=== PATIENT | male | born 1950 | race Caucasian/White ===

== ENCOUNTER 2023-11-06 08:38 | Observation (INO) ==
--- NOTE | 2023-10-11 13:37 | PAT Medication Instructions ---
Medication Instructions Date of Service October 11, 2023 Home Medications Medication Instructions Recorded blood-glucose meter #1 ea 05/26/22 albuterol sulfate 90 mcg/actuation 1 inh inhalation QID PRN Shortness 04/17/23 aerosol inhaler (ProAir HFA) Of Breath #3 Inhalers fluticasone propionate 50 1 spray intranasal BID #48 grams 06/29/23 mcg/actuation nasal spray,suspension (Flonase Allergy Relief) blood sugar diagnostic (Blood #50 ea 07/04/23 Glucose Test strips) ipratropium 0.5 mg-albuterol 3 mg 3 ml inhalation QID PRN wheezing 07/06/23 (2.5 mg base)/3 mL nebulization #180 mL soln Spacer for Inhaler #1 ea 07/14/23 benazepril 40 mg tablet 40 mg PO QAM #90 tabs 08/14/23 glipizide 10 mg tablet, extended 10 mg PO QAM #90 tabs 08/14/23 release 24 hr meloxicam 7.5 mg tablet 7.5 mg PO BID #180 tabs 08/14/23 metformin 1,000 mg tablet 1,000 mg PO BID #180 tabs 08/14/23 pneumoc 20-vikas conj-dip cr(PF) 0.5 0.5 ml IM ONCE #0.5 mL 08/14/23 mL IM syringe (Prevnar 20 (PF)) simvastatin 20 mg tablet 20 mg PO HS #90 tabs 08/14/23 tamsulosin 0.4 mg capsule (Flomax) 0.4 mg PO HS #90 caps 08/14/23 varicella-zoster glycoE [id number] 0.5 ml IM ONCE #1 ea 08/14/23 adj(PF) 50 mcg/0.5 mL IM susp, kit (Shingrix (PF)) budesonide 160 mcg-glycopyr 9 2 inh inhalation BID #3 Inhalers 09/06/23 mcg-formot 4.8 mcg/actuation HFA inhaler (Breztri Aerosphere) montelukast 10 mg tablet 10 mg PO QPM #90 tabs 09/25/23 (Singulair) aspirin 81 mg tablet,delayed release 81 mg PO QAM ascorbic acid (vitamin C) 1,000 mg tablet 1 g PO BID albuterol sulfate 90 mcg/actuation aerosol inhaler (ProAir HFA) 1 inh inhalation QID PRN fluticasone propionate 50 mcg/actuation nasal spray,suspension (Flonase Allergy Relief) 1 spray intranasal BID ipratropium 0.5 mg-albuterol 3 mg (2.5 mg base)/3 mL nebulization soln 3 ml inhalation QID PRN benazepril 40 mg tablet 40 mg PO QAM glipizide 10 mg tablet, extended release 24 hr 10 mg PO QAM meloxicam 7.5 mg tablet 7.5 mg PO BID metformin 1,000 mg tablet 1,000 mg PO BID simvastatin 20 mg tablet 20 mg PO HS tamsulosin 0.4 mg capsule (Flomax) 0.4 mg PO HS budesonide 160 mcg-glycopyr 9 mcg-formot 4.8 mcg/actuation HFA inhaler (Breztri Aerosphere) 2 inh inhalation BID montelukast 10 mg tablet (Singulair) 10 mg PO QPM amlodipine 10 mg tablet 10 mg PO QAM cholecalciferol (vitamin D3) 50 mcg (2,000 unit) capsule (Vitamin D3) 50 mcg PO QAM finasteride 5 mg tablet 5 mg PO QAM ASK your surgeon for instructions meloxicam 7.5 mg tablet 7.5 mg PO BID ASK your prescriber and surgeon aspirin 81 mg tablet,delayed release 81 mg PO QAM DO NOT take the morning of surgery ascorbic acid (vitamin C) 1,000 mg tablet 1 g PO BID benazepril 40 mg tablet 40 mg PO QAM glipizide 10 mg tablet, extended release 24 hr 10 mg PO QAM metformin 1,000 mg tablet 1,000 mg PO BID cholecalciferol (vitamin D3) 50 mcg (2,000 unit) capsule (Vitamin D3) 50 mcg PO QAM Take morning of surgery With a small sip of water, OTHERWISE NOTHING TO EAT OR DRINK AFTER MIDNIGHT: albuterol sulfate 90 mcg/actuation aerosol inhaler (ProAir HFA) 1 inh inhalation QID PRN(use if needed; please bring with you to hospital day of surgery if possible) fluticasone propionate 50 mcg/actuation nasal spray,suspension (Flonase Allergy Relief) 1 spray intranasal BID ipratropium 0.5 mg-albuterol 3 mg (2.5 mg base)/3 mL nebulization soln 3 ml inhalation QID PRN(if needed) budesonide 160 mcg-glycopyr 9 mcg-formot 4.8 mcg/actuation HFA inhaler (Breztri Aerosphere) 2 inh inhalation BID amlodipine 10 mg tablet 10 mg PO QAM finasteride 5 mg tablet 5 mg PO QAM Take evening before surgery ascorbic acid (vitamin C) 1,000 mg tablet 1 g PO BID albuterol sulfate 90 mcg/actuation aerosol inhaler (ProAir HFA) 1 inh inhalation QID PRN(if needed) fluticasone propionate 50 mcg/actuation nasal spray,suspension (Flonase Allergy Relief) 1 spray intranasal BID ipratropium 0.5 mg-albuterol 3 mg (2.5 mg base)/3 mL nebulization soln 3 ml inhalation QID PRN(if needed) metformin 1,000 mg tablet 1,000 mg PO BID simvastatin 20 mg tablet 20 mg PO HS tamsulosin 0.4 mg capsule (Flomax) 0.4 mg PO HS budesonide 160 mcg-glycopyr 9 mcg-formot 4.8 mcg/actuation HFA inhaler (Breztri Aerosphere) 2 inh inhalation BID montelukast 10 mg tablet (Singulair) 10 mg PO QPM Other Notes If you have any questions please call us at [phone] or [phone] or [phone] or [phone]
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
[~2023-11-06 08:38] MED LIST: ACETAMINOPHEN 500 MG TAB PO SCH; BUPIVACAINE 0.5 % 5 MG/1 ML PF 10ML VIAL ONE; FAMOTIDINE 20 MG TAB PO SCH; GABAPENTIN 300 MG CAP PO SCH; GLYCOPYRROLATE 0.2 MG/ML VIAL ONE; LIDOCAINE 2% 2 ML VIAL/AMP(20MG/ML) INFIL ONE; LR 500ML BOLUS, THEN 15ML/HR IV SCH; LR 60ML/HR IV SCH; MIDAZOLAM HCL 1 MG/ML 2ML VIAL ONE; ONDANSETRON INJ 2 MG/ML 2 ML VIAL ONE; ORTHO JOINT MIX INFIL SCH; PROPOFOL IV EMULSION 10 MG/ML 20 ML VIAL IV ONE; ROPIVACAINE 0.5% 5 MG/ML 30 ML VIAL ONE; TRANEXAMIC ACID 1,000 MG **IV Intra-op IV SCH; TRANEXAMIC ACID 1,000 MG **IV Pre-op IV SCH; [UNRECOGNIZED DRUG - OTHER] SCH; ceFAZolin 2000MG 2,000 MG/15 ML SYR IV SCH; dexAMETHasone 4 MG TAB PO SCH; dexAMETHasone**PF** 10 MG/ML VIAL IV SCH
--- NOTE | 2023-11-06 09:06 | History & Physical Bridge Note ---
Date of Service November 06, 2023 History & Physical Bridge Note I have examined the patient, reviewed the History & Physical and in the interval since the performance of the History & Physical I have noted the following changes of clinical significance: no changes noted
[2023-11-06] MEDS ORDERED: ORTHO JOINT ANESTHETIC ONE (09:28)
[2023-11-06] MEDS ORDERED: ONDANSETRON INJ 2 MG/ML 2 ML VIAL IV PRN ×2 (09:30→12:56)
[2023-11-06] MEDS ORDERED: ePHEDrine sulfate 50 MG/ML AMP IV PRN (09:30)
[2023-11-06] MEDS ORDERED: ATROPINE SULFATE 0.1 MG/ML 10ML SYR IV PRN (09:30)
[2023-11-06] MEDS ORDERED: fentaNYL citrate PF 100 MCG/2 ML VIAL IV PRN (09:30)
[2023-11-06] MEDS ORDERED: PROPOFOL IV EMULSION 10 MG/ML 20 ML VIAL IV ONE (10:43)
[2023-11-06] MEDS ORDERED: PHENYLEPHRINE 100MCG/ML 10ML SYR IV ONE (10:45)
--- NOTE | 2023-11-06 11:13 | Operative Report ---
PG Post Operative Report Pre & Post Diagnosis Operation Date: 11/06/23 10:00 Pre-Op Diagnosis: Rigth Knee Degenerative Joint Disease Post-Op Diagnosis: Rigth Knee Degenerative Joint Disease I identified the patient and participated in the time-out.: Yes Procedure Operation Date: 11/06/23 10:00 Actual Procedures p Right Total Knee Arthroplasty(Right) - Jerson So DO Surgeon Jerson So DO Bee Tender Will Sena PA-C Estimated Blood Loss 30 Findings Consistent with Post-Op Diagnosis Specimens Right femoral and tibial bone Description of Procedure Implants used: I used a Ondina Persona total knee arthroplasty system with a size 8 standard PS femur, E tibia, 34 oval patella, and a size 12 CPS polyethylene bearing. All components were cemented in place with Biomet cement. Camron mast [facility] for the above procedure. He was seen in the preoperative holding area and the operative extremity was identified and signed. He was given a preoperative antibiotic, TXA, a spinal anesthetic and an adductor nerve block. He was taken back to the operating room and laid on the table in supine position. He was given basic sedation. The operative knee was then prepped and draped in sterile fashion. A timeout was done, and the patient and the operative extremity was properly identified. A midline incision was made directly over the patella. Dissection was taken down to the extensor mechanism. A midvastus arthrotomy was used. The medial retinaculum was released and the fat pad was mostly excised. The knee was flexed and the ACL, PCL, and meniscus were removed. A drill was sent down the center of the femoral canal followed by an intramedullary boni. Off that boni a distal femoral cutting block was placed. 9 mm was resected off the distal femur at 5 of valgus. A posterior referencing AP sizing guide was then placed on the distal femur. The femur measured to be a size 8. 2 drill holes were placed in 3 of external rotation. A 4-in-1 cutting block was then impacted into place. Anterior, posterior, and chamfer cuts were then made. The proximal tibia was then exposed. An external tibial alignment guide was placed. A tibial cut guide was then anchored in place and the proximal tibia was then resected. The posterior aspect of the knee was then opened up and any additional meniscus fragments and osteophytes were removed. The tibia measured to be a size E. The tibial plate was then placed in the appropriate rotation and the tibia was drilled and punched. Trial components were then placed. I used a size 12 CPS polyethylene insert. The knee was brought through a full range of motion and felt to be stable. The peg holes for the femoral component were then drilled. The patella was then everted and 9 mm was resected off the posterior aspect of the patella. The patella measured to be a size 34 oval. 3 peg holes were then drilled. A trial patella was placed. The knee was once again brought through a full range of motion and felt to be stable. Trial components were then removed. The surrounding soft tissues were injected with 100 cc of an orthopedic pain control cocktail. All components were then cemented into place with Biomet cement. The final polyethylene insert was then snapped into place. Once cement was dry the tourniquet was deflated. Hemostasis was obtained. A dilute betadyne lavage was then done for 3 minutes. The joint was then irrigated with normal saline solution. The midvastus arthrotomy was then closed with #1 Vicryl suture. The skin was closed with 2-0 Vicryl, 3-0V lock suture, and arabella. A soft compressive dressing was placed. He was then transferred to a hospital bed and taken to the postanesthesia care unit in stable condition. He tolerated the procedure well. Will Sena PA-C, was present for the entire procedure. He was critical for patient positioning, prepping, draping, retraction exposure, wound closure and application of sterile dressing. I attest to the content of the Intraoperative Record and any orders documented therein. Any exceptions are noted below.
--- NOTE | 2023-11-06 12:15 | XRay Report ---
TWO VIEWS RIGHT KNEE CLINICAL HISTORY: Postoperative examination. FINDINGS: AP and crosstable lateral portable views of the right knee are obtained. A right knee arthr oplasty is in near anatomic alignment. There has been undersurface remodeling of the patella. No acut e fracture is seen. There are expected postoperative changes around the knee including skin clips, so ft tissue edema, and subcutaneous gas. There is atherosclerotic calcification of the popliteal artery . IMPRESSION: Expected postoperative changes status post right knee arthroplasty. No acute fracture is seen. ACT 112: Negative or not required by law. Electronically signed by: Mitesh Wong M.D. 11/06/2023 12:14 PM
[2023-11-06] MEDS ORDERED: NALOXONE HCL 0.4 MG/1 ML VIAL/CARP IV PRN (12:56)
[2023-11-06] MEDS ORDERED: traMADol HCL 50 MG TABLET PO PRN (12:56)
[2023-11-06] MEDS ORDERED: PHARMACY GLYCEMIC MGMT CONSULT PRN (12:56)
[2023-11-06] MEDS ORDERED: METOCLOPRAMIDE HCL INJ 5 MG/ML 2 ML VIAL IV PRN (12:56)
[2023-11-06] MEDS ORDERED: bisacodyL 10 MG SUPP PR PRN (12:56)
[2023-11-06] MEDS ORDERED: MAGNESIUM HYDROXIDE SUSP 30 ML UDC PO PRN (12:56)
[2023-11-06] MEDS ORDERED: oxyCODONE HCL IR 5 MG TAB (IMMEDIATE RELEASE) PO PRN (12:56)
[2023-11-06] MEDS ORDERED: HYDROmorphone INJ 0.5 MG/0.5 ML SYR IV PRN (12:56)
--- NOTE | 2023-11-06 13:04 | Anesthesiology Progress Note ---
Date of Service November 06, 2023 Anesthesia Post Procedure Vital Signs Vital Signs: Temp Pulse Pulse Resp BP Pulse Ox O2 Del Method 11/06/23 12:50 99.0 F 57 L 13 134/71 96 Room Air 11/06/23 12:40 62 14 137/65 94 Room Air 11/06/23 12:30 66 20 123/72 96 Room Air 11/06/23 12:20 56 L 15 130/69 94 Room Air 11/06/23 12:10 59 L 15 135/71 95 Room Air 11/06/23 12:00 57 L 16 132/68 92 Room Air 11/06/23 11:50 62 17 135/70 93 Room Air 11/06/23 11:40 60 16 138/68 100 Oxymask 11/06/23 11:34 97.5 F L 65 15 133/69 99 Oxymask 11/06/23 09:28 Room Air 11/06/23 08:50 98.1 F 65 18 167/80 H 95 Room Air O2 Flow Rate 11/06/23 12:50 11/06/23 12:40 11/06/23 12:30 11/06/23 12:20 11/06/23 12:10 11/06/23 12:00 11/06/23 11:50 11/06/23 11:40 4 11/06/23 11:34 6 11/06/23 09:28 11/06/23 08:50 Pain Intensity Right Knee: Pain Intensity: 4 Transfer of Care Handoff Completed per policy Notes Mental Status: alert / awake / arousable and participated in evaluation Patient Amnestic to Procedure: Yes Nausea / Vomiting: adequately controlled Pain: adequately controlled Airway Patency, RR, SpO2: stable & adequate BP & HR: stable & adequate Hydration State: stable & adequate Neuraxial Anesthesia: was administered and sensory block is resolving Anesthetic Complications: no major complications apparent and Pt Satisfied with anesthetic care
[2023-11-06] MEDS ORDERED: DEXTROSE 50% 50 ML SYRINGE IV PRN (14:15)
[2023-11-06] MEDS ORDERED: CARBOHYDRATES FOR HYPOGLYCEMIA PO PRN (14:15)
[2023-11-06] MEDS ORDERED: GLUCOSE 40% GEL 15 GM TUBE PO PRN (14:15)
[2023-11-06] MEDS ORDERED: GLUCAGON FOR INJ 1 MG VIAL IM PRN (14:15)
[2023-11-06] MEDS ORDERED: GLUCOSE 10 TAB/TUBE PO PRN (14:15)
--- NOTE | 2023-11-06 14:16 | Pharmacy Report ---
Pharmacy Glycemic Short Note 2 - Date of Service November 06, 2023 - Glycemic Short BSG Results (Last 24 hours): 11/06/23 11/06/23 09:13 11:37 POC Glucose 131 H 104 H OUTPATIENT ANTIDIABETIC REGIMEN: * GLIPIZIDE 10 MG Qam, METFORMIN 1000 mg BID * A1c 6.4% 10/17/23 ASSESSMENT: * Admitted following R TKA, BSG post-op 104 mg/dL, received 8 mg PO dexamethasone * Will initiate novolog with weight based stress of 2 parameters. * Hold on basal for now but will place scale for PM in the event BSGs trend upward PLAN FOR INPATIENT GLYCEMIC CONTROL: * Hold outpatient oral diabetes medications * Basal insulin * Lantus 0/15 units SQ HS * Bolus insulin * NovoLog per scale ACHS or Q6hrs while NPO * Goal Range: Low 110 mg/dL - High 140 mg/dL * Correction Factor: 25 mg/dL/unit * Nutritional / Prandial insulin per carb ratio of 1 unit per 9 grams CHO consumed
[2023-11-06] MEDS: ACETAMINOPHEN 500 MG TAB PO SCH ×2 (14:17→21:59)
[2023-11-06] MEDS: SODIUM CHLORIDE 0.9% 1,000 ML IV SCH (15:50)
[2023-11-06] MEDS: FLUTICASONE FUROATE 200MCG 14 PUFFS/INHALER INH SCH (15:52)
[2023-11-06] MEDS: UMECLIDINIUM/VILANTEROL 62.5/25MCG 7 PUFFS/INHALER INH SCH (15:52)
[2023-11-06] MEDS: INSULIN ASPART PER UNIT CHARGE SC SCH ×3 (15:55→21:25)
[2023-11-06] MEDS: KETOROLAC TROMETHAMINE 15 MG/ML VIAL IV SCH ×2 (16:03→21:08)
[2023-11-06] MEDS: ceFAZolin 2000MG 2,000 MG/15 ML SYR IV SCH (18:09)
[2023-11-06] MEDS ORDERED: LANTUS PER UNIT CHARGE SC ONE (21:00)
[2023-11-06] MEDS ORDERED: SENNA 8.6 MG TAB PO SCH (21:00)
[2023-11-06] MEDS ORDERED: TAMSULOSIN HCL 0.4 MG CAP PO SCH (21:00)
[2023-11-06] MEDS ORDERED: MONTELUKAST SODIUM 10 MG TABLET PO SCH (21:00)
[2023-11-06] MEDS: DOCUSATE SODIUM 100 MG CAP PO SCH (21:00)
[2023-11-06] MEDS ORDERED: SIMVASTATIN 20 MG TAB PO SCH (21:00)
[2023-11-06] MEDS ORDERED: metFORMIN HCL 500 MG TAB PO SCH (21:00)
[2023-11-06] MEDS: ASPIRIN 81 MG ECTAB PO SCH (21:01)
[2023-11-07] MEDS: SODIUM CHLORIDE 0.9% 1,000 ML IV SCH (00:28)
[2023-11-07] MEDS: ceFAZolin 2000MG 2,000 MG/15 ML SYR IV SCH (00:36)
[2023-11-07] MEDS: ACETAMINOPHEN 500 MG TAB PO SCH (06:09)
[2023-11-07] MEDS: KETOROLAC TROMETHAMINE 15 MG/ML VIAL IV SCH (06:10)
[2023-11-07] MEDS: ASPIRIN 81 MG ECTAB PO SCH (08:49)
[2023-11-07] MEDS: DOCUSATE SODIUM 100 MG CAP PO SCH (08:49)
[2023-11-07] MEDS: UMECLIDINIUM/VILANTEROL 62.5/25MCG 7 PUFFS/INHALER INH SCH (08:53)
[2023-11-07] MEDS: FLUTICASONE FUROATE 200MCG 14 PUFFS/INHALER INH SCH (08:53)
[2023-11-07] MEDS: INSULIN ASPART PER UNIT CHARGE SC SCH (08:53)
[2023-11-07] MEDS ORDERED: amLODIPine BESYLATE 5 MG TAB PO SCH (09:00)
[2023-11-07] MEDS ORDERED: FINASTERIDE 5 MG TAB PO SCH (09:00)
[2023-11-07] MEDS ORDERED: MULTIVITAMIN TAB PO SCH (09:00)
[2023-11-07] MEDS ORDERED: NON-FORMULARY MEDICATION (Glipizide 10 mg tablet extended release 24hr) PO SCH (09:00)
[2023-11-07] MEDS ORDERED: ENALAPRIL MALEATE 10 MG TAB PO SCH (09:00)
--- NOTE | 2023-11-07 10:16 | Orthopedic Progress Note ---
Date of Service November 07, 2023 Assessment & Plan (1) Status post right knee replacement: Overall he is doing quite well today with good pain control to the right knee. He is currently on aspirin for DVT prophylaxis. He participated well this morning with physical therapy working on ambulation and range of motion exercises. He can be discharged home at this point. He will follow-up with orthopedics in 2 weeks for postoperative care. Subjective . Camron was seen and evaluated at bedside this morning resting comfortably in no apparent distress. He notes that his pain is well-controlled to the right knee. He has worked with physical therapy this morning and was able to participate with ambulation and range of motion exercises quite well. He denies any other issues. Review of Systems All systems reviewed & are unremarkable except as noted in HPI & below. Physical Exam . On physical examination of the right knee, dressings are clean, dry, and intact. His right leg is out in full extension. He has active plantarflexion dorsiflexion to the right ankle. +2 DP and PT pulses. Less than 2-second capillary refill. Normal sensation. Neurovascular intact. Results & Data Results & Data Laboratory Results . Diagnostic Findings . Postoperative x-rays of the right knee show the prosthesis to be in anatomical alignment with no signs of fracture complication or loosening. PG Care Time/CCT Total # of Minutes Spent Total Time Spent with Patient: Total time spent is greater than 50% in coordination of care (as documented) at patient's floor/unit and/or counseling patient: Coding Level of Care Code 07573 Post Operative Follow-Up Diagnoses Status post right knee replacement Z96.651
--- NOTE | 2023-11-07 10:18 | Discharge Summary ---
Date of Service November 07, 2023 Principal Diagnosis Same as "Discharge Diagnosis" noted below under Discharge Instructions. Discharge Exam . On physical examination of the right knee, dressings are clean, dry, and intact. His right leg is out in full extension. He has active plantarflexion dorsiflexion to the right ankle. +2 DP and PT pulses. Less than 2-second capillary refill. Normal sensation. Neurovascular intact. Discharge Data Procedures Performed Operation Date: 11/06/23 10:00 Actual Procedures p Right Total Knee Arthroplasty(Right) - Jerson So DO Ordered Studies 11/06/23 05:00 US - OR guided needle placemen Routine Hospital Course (1) Status post right knee replacement: On November 06, 2023 Camron arrived at [facility] and underwent a right total knee arthroplasty with Dr. So without any complications. He had a spinal anesthetic. Postoperatively, he was started on aspirin for DVT prophylaxis and transferred to the general orthopedic floor in stable condition. His hospital course was uneventful. On postoperative day #1, his vital signs were stable and his pain was well-controlled. He participated well with physical therapy working on ambulation and range of motion exercises. He was then discharged home in stable condition. He will follow-up with orthopedics in 2 weeks for postoperative care. PG Care Time/CCT Total # of Minutes Spent Total Time Spent with Patient: Total time spent is greater than 50% in coordination of care (as documented) at patient's floor/unit and/or counseling patient: Discharge Plan Discharge Items Patient Disposition: Home - Self-Care Reason For Visit: Rigth Knee Degenerative Joint Disease Discharge Diagnosis: Same Activity: Per Instructions section Non-emergency contact: Surgeon Call non-emergency contact if: your temperature is above 101.5, your wound has increased redness and your wound has increased drainage Follow-up/Referrals: Dony Parnell III, CRNP [Primary Care Provider] - Jerson So DO [Physician] - Diet: Regular Addtl Attending Provider Instructions: Activity and Therapy Recommendations: * If you are using [facility] then therapy will be provided at your home until they feel you have accomplished all of your goals. * If you are using [facility] then Physical Therapy will be provided until they feel you are ready to start Outpatient Physical Therapy. * If you are not using home therapy then Outpatient Physical Therapy should start about 3-5 days from your day of surgery. Therapy will last about 6-10 weeks * It is important not to put a pillow under your knee when you are relaxing or sleeping. It is just as important to make sure you are getting your knee perfectly straight as it is to regain your knee bend. * You were shown a series of exercises in the hospital. Do these exercises three times each day including the exercises you were shown in physical therapy. * Get up and walk several times each day. For the first four weeks, try not to stand or walk for more than one hour at a time. If you do stand or walk for more than one hour, you will not hurt anything, but your leg will likely swell. * As you feel comfortable, you may change from the walker or crutches to a cane and then to independent walking. Medications: * Narcotic You will likely be sent home from the hospital with a prescription for the narcotic pain medication that worked best throughout your stay. * Cefadroxil -take the antibiotic twice a day for 10 days to help prevent infection. * Aspirin Most patients will be required to take Aspirin 81mg twice a day for 6 weeks after surgery. This is obtained [id number] and a prescription is not necessary. * Other medications may be prescribed for specific circumstances. If you have any questions, please call the office at . * Resume previous home medications unless otherwise instructed TEDs/Elastic Stockings: The white elastic stockings help limit swelling and prevent blood clots from forming in your legs.~ The more you wear them, the more they work. Wear them for six weeks. Dressing Care: The dressing can be changed after physical therapy on postop day #1. Daily dry dressing changes for a few days, especially if the incision is still draining some. If the incision is not draining then you may leave the arabella open to air. If there is a little bit of drainage or if the arabella are getting stuck on your clothing then cover the incision with a dry dressing. The arabella will be removed at your 2 week follow-up appointment. Showering: You may shower 5 days from the day of surgery as long as the incision is no longer draining. You may shower with the arabella exposed. Let soapy water run over the arabella and pat them dry. Do not scrub or soak the incision. Things To Watch For: * Drainage from the incision site that occurs more than one week after your surgery. * Increased redness at the incision site. * Fever above 102 degrees Fahrenheit. * Unusual chest pain or shortness of breath. * Call [facility] at with any of the above problems Follow-Up Visit: Follow-up with Dr. So's PA (Jerson Armando) 2-3 weeks after your day of surgery. He will remove your arabella and answer any questions. If you have any additional questions or concerns, Dr So is usually in the office at the same time and will be available An appointment was probably scheduled when you signed-up for surgery in the office. If you have any questions call Office Instructions: More detailed instructions as well as Frequently Asked Questions were provided in a folder by our office when you signed-up for surgery. Please review these instructions when you get home. If you have any further questions or concerns, please feel free to call the office at [phone] Pending Studies at Discharge: No Stand-Alone Forms: My [facility], Smoking Cessation Medications and DC Order Prescriptions: New aspirin 81 mg Tablet,Delayed Release (Dr/Ec) 81 mg PO BID 42 Days Qty: 0 0RF oxycodone 5 mg Tablet 5 mg PO Q6 PRN (Reason: pain) Qty: 30 0RF cefadroxil 500 mg capsule 500 mg PO BID 10 Days Qty: 20 0RF ondansetron 4 mg tablet,disintegrating 4 mg PO Q6H PRN (Reason: nausea and vomiting) Qty: 30 0RF Continued albuterol sulfate [ProAir HFA] 90 mcg/actuation HFA aerosol inhaler 1 inh inhalation QID PRN (Reason: Shortness Of Breath) Qty: 3 3RF fluticasone propionate [Flonase Allergy Relief] 50 mcg/actuation spray,suspension 1 spray intranasal BID Qty: 48 11RF Rx Instructions: administer into each nostril (DME) Blood Glucose Test Strip See Rx Instructions .Route Qty: 50 3RF Rx Instructions: TEST TWICE DAILY OR DIRECTED ipratropium-albuterol 0.5 mg-3 mg(2.5 mg base)/3 mL solution for nebulization 3 ml inhalation QID PRN (Reason: wheezing) Qty: 180 3RF (DME) Spacer for Inhaler Misc See Rx Instructions .Route Qty: 1 0RF Rx Instructions: As directed w/ inhaler Breztri Aerosphere 160-9-4.8 mcg/actuation HFA aerosol inhaler 2 inh inhalation BID Qty: 3 3RF montelukast [Singulair] 10 mg tablet 10 mg PO QPM Qty: 90 3RF tamsulosin [Flomax] 0.4 mg capsule 0.4 mg PO HS Qty: 90 3RF (DME) Wheeled Walker Misc See Rx Instructions .MEDSUPPLY Qty: 1 0RF Rx Instructions: As directed ascorbic acid (vitamin C) 1,000 mg tablet 1 g PO BID (DME) blood-glucose meter Kit See Rx Instructions .Route Qty: 1 0RF Rx Instructions: As directed glipizide 10 mg tablet extended release 24hr 10 mg PO QAM Qty: 90 3RF metformin 1,000 mg tablet 1,000 mg PO BID Qty: 180 3RF simvastatin 20 mg tablet 20 mg PO HS Qty: 90 3RF benazepril 40 mg tablet 40 mg PO QAM Qty: 90 3RF Shingrix (PF) 50 mcg/0.5 mL suspension for reconstitution 0.5 ml IM ONCE Qty: 1 1RF Patient Comments: waiting to receive Prevnar 20 (PF) 0.5 mL syringe 0.5 ml IM ONCE Qty: 0.5 0RF Patient Comments: waiting to receive cholecalciferol (vitamin D3) [Vitamin D3] 50 mcg (2,000 unit) Capsule 50 mcg PO QAM amlodipine 10 mg tablet 10 mg PO QAM finasteride [Proscar] 5 mg tablet 5 mg PO QAM Discontinued meloxicam 7.5 mg tablet 7.5 mg PO BID Qty: 180 3RF aspirin 81 mg tablet,delayed release (DR/EC) 81 mg PO QAM Discharge Orders: Discharge Order (Routine); Ordered 11/07/23 Ordered By: Monroe Shaw/Other Patient Handouts: DVT Post Op Prevention Admission Data Admit Date/Time: 11/06/23 11:41 Attending Provider: Jerson So Admit Provider: Jerson So Primary Care Provider: Dony Parnell III
== END 2023-11-07 10:35 | disposition home or self-care (01) ==
LOC: ASU 08:38 → PACUINP 08:38